=== PATIENT | female | born 1995 | race American Indian/Alaskan Native ===

== ENCOUNTER 2017-07-01 06:57 | Outpatient (CLI) | payer MEDICARE ==
[2017-07-01 07:16] VITALS: BP 110/58
[2017-07-01] MEDS ORDERED: LACTATED RINGERS 500 ML IV ONE (08:00)
[2017-07-01 08:01] LABS: Bilirubin,Urine NEG (Negative); Blood,Urine NEG (Negative); Color,Urine Straw (Yellow); Protein,Urine <15 mg/dL mg/dL (Negative); Urobilinogen,Urine < 2.0 mg/dL (<2.0); WBC,Urine < 1.0 /HPF (0.0-6.0)
[2017-07-01 08:47] LABS: RBC,Urine < 1.0 /HPF (0.0-6.0)
== END 2017-07-01 09:19 | disposition home or self-care (01) ==
LOC: TRG 06:57
PROVIDERS: ATTEND Obstetrics & Gynecology
DX: O26.892 Other specified pregnancy related conditions, second trimester (principal); R25.2 Cramp and spasm; Z3A.21 21 weeks gestation of pregnancy
CPT/HCPCS: 59025; 81001

== ENCOUNTER 2017-10-01 20:36 | Outpatient (CLI) | payer MEDICARE ==
[2017-10-01] MEDS ORDERED: LACTATED RINGERS 500 ML IV ONE (21:08)
[2017-10-01 21:38] LABS: Bilirubin,Urine NEG (Negative); Blood,Urine NEG (Negative); Color,Urine Yellow (Yellow); Protein,Urine <15 mg/dL mg/dL (Negative); Urobilinogen,Urine < 2.0 mg/dL (<2.0)
[2017-10-01 21:39] LABS: Bacteria,Urine 2+ /HPF (Negative); Mucus,Urine FEW /HPF
[2017-10-01 22:06] VITALS: BP 119/66
--- NOTE | 2017-10-02 01:43 | Ultrasound Report ---
FINAL REPORT EXAM: US OB BPP WO NON-STRESS HISTORY: decrease movement TECHNIQUE: A limited OB sonogram was obtained for evaluation of the biophysical profile. FINDINGS: For breathing movements, a score of 2 out of 2 was obtained. For movements, a score of 2 out of 2 was obtained. For posture in tone, a score of 2 out of 2 was obtained. For qualitative amniotic fluid volume, a score of 2 out of 2 was obtained. The total biophysical profile score was 8 out of 8. The heart rate is 133 BPM. IMPRESSION: Biophysical profile score of 8 out of 8. The heart rate is 133 BPM.
== END 2017-10-01 22:40 | disposition home or self-care (01) ==
LOC: TRG 20:36
PROVIDERS: ATTEND Obstetrics & Gynecology
DX: O26.893 Other specified pregnancy related conditions, third trimester (principal); R10.2 Pelvic and perineal pain; Z3A.33 33 weeks gestation of pregnancy
CPT/HCPCS: 59025; 76819; 81001; 96360; J7120

== ENCOUNTER 2017-10-31 22:11 | Outpatient (CLI) | payer MEDICARE ==
[2017-10-31 23:00] LABS: Bacteria,Urine 1+ /HPF (Negative); Bilirubin,Urine NEG (Negative); Blood,Urine NEG (Negative); Color,Urine Yellow (Yellow); Mucus,Urine FEW /HPF
[2017-10-31 23:26] VITALS: BP 123/67
== END 2017-10-31 23:47 | disposition home or self-care (01) ==
LOC: TRG 22:11
PROVIDERS: ATTEND Obstetrics & Gynecology
DX: O47.1 False labor at or after 37 completed weeks of gestation (principal); Z3A.37 37 weeks gestation of pregnancy
CPT/HCPCS: 59025; 81001

== ENCOUNTER 2017-11-06 17:43 | Outpatient (CLI) | payer MEDICARE ==
[2017-11-06 18:47] VITALS: BP 114/68
== END 2017-11-06 19:18 | disposition home or self-care (01) ==
LOC: TRG 17:43
PROVIDERS: ATTEND Obstetrics & Gynecology
DX: O47.1 False labor at or after 37 completed weeks of gestation (principal); Z3A.38 38 weeks gestation of pregnancy
CPT/HCPCS: 59025

== ENCOUNTER 2019-01-20 10:02 | Inpatient (IN) | payer OTHER ==
[2019-01-20] MEDS ORDERED: OXYTOCIN DRIP 30 UNITS/500 ML BAG IV SCH ×2 (10:30→11:00)
--- NOTE | 2019-01-20 10:34 | History and Physical Report ---
History of Present Illness Date of examination: 01/20/19 Date of admission: 01/20/19 10:02 Chief complaint: scheduled induction of labor History of present illness: Pt is a 23 year old -[place] ERIN 01/23/19 at 39w4d who presents for scheduled induction of labor secondary to morbid obesity. She reports irregular contractions. She denies vaginal bleeding or leakage of fluid. She has had care with comangement by [facility] secondary to morbid obesity, chest pain and palpitations s/p Cardiology consult, H/o depression, lapse in care from 19-28 wks, limited anatomy scan with MFM follow up, echongenic foci- [facility] following. She is GBS negative. Past History Past Medical History: other (Obesity ) Past Surgical History: D&C Family/Genetic History: diabetes, hypertension Social history: no significant social history - Obstetrical History Expected Date of Delivery: 01/23/19 Actual Gestation: 39 Week(s) 4 Day(s) : 4 Para: 2 Hx # Term Pregnancies: 2 Number of Pregnancies: 0 Spontaneous Abortions: 0 Induced : 1 Number of Living Children: 2 Medications and Allergies Allergies Allergy/AdvReac Type Severity Reaction Status Date / Time No Known Allergies Allergy Verified 11/04/15 01:34 Home Medications Medication Instructions Recorded Confirmed Last Taken Type Vit-Fe Fumar-FA [ 1 tab PO QDAY #30 tablet 03/10/16 11/15/17 11/14/17 Rx Vitamin] HYDROcodone/APAP 5-325 [Charlo 1 each PO Q6HR PRN #30 tablet 11/16/17 Unknown Rx 5/325] Ibuprofen [Motrin] 800 mg PO Q8HR PRN #60 tablet 11/16/17 Unknown Rx Review of Systems All systems: negative - Physical Exam Breasts: Positive: deferred Cardiovascular: Regular rate Lungs: Positive: Clear to auscultation Abdomen: Positive: soft (obese, gravid ) Genitourinary (Female): Positive: normal external genitalia Uterus: Positive: enlarged (gravid ) Extremities: Positive: normal - Obstetrical FHR: auscultation normal Cervical Dilatation: 3 Cervical Effacement Percentage: 70 station: -3 Uterine Contraction Pattern: Regular Uterine Tone Measurement Phase: Resting Uterine Contraction Intensity: Moderate Results Result Diagrams: 01/20/19 10:55 All other labs normal. Assessment and Plan A: IUP at 39w4d Morbid Obesity GBS Negative P: Admit to labor and delivery Routine intrapartum care
[2019-01-20] MEDS ORDERED: TERBUTALINE 1 MG/1 ML INJ SUB-Q PRN (11:00)
[2019-01-20] MEDS ORDERED: LIDOCAINE (2%) 20 MG/1 ML VIAL 20 ML MDV INFILTRATI NR (11:00)
[2019-01-20] MEDS ORDERED: MINERAL OIL 30 ML ORAL LIQD PO PRN (11:00)
[2019-01-20] MEDS ORDERED: OXYTOCIN 20 UNIT/1000ML DRIP 20 UNITS/1,000 ML BAG IV SCH (11:00)
[2019-01-20] MEDS ORDERED: NALOXONE 0.4 MG/1 ML INJ IV PRN (11:00)
[2019-01-20] MEDS ORDERED: fentaNYL 100 MCG/2 ML INJ IV PRN (11:00)
[2019-01-20] MEDS ORDERED: TERBUTALINE 1 MG/1 ML INJ IVP PRN (11:00)
[2019-01-20] MEDS ORDERED: ePHEDrine SULFATE 50 MG/1 ML INJ IV PRN (11:00)
[2019-01-20] MEDS ORDERED: ONDANSETRON 4 MG/2 ML INJ IV PRN (11:00)
[2019-01-20 11:06] LABS: Hematocrit 32.3 % (30.3-42.9); Hemoglobin 10.9 gm/dl (10.1-14.3); Mean Corpuscular HGB Conc 34 % (30-34); Mean Corpuscular Volume 86 fl (79-97); Platelet Count 283 K/mm3 (140-440); Red Blood Count 3.74 M/mm3 (3.65-5.03); Red Cell Distribution Width 13.7 % (13.2-15.2)
[2019-01-20] MEDS: LACTATED RINGERS 1,000 ML IV SCH ×2 (11:30→19:09)
[2019-01-20] MEDS: BUTORPHANOL 2 MG/1 ML INJ IV PRN (23:59)
[2019-01-21] MEDS: LACTATED RINGERS 1,000 ML IV SCH (03:08)
[2019-01-21] MEDS: BUTORPHANOL 2 MG/1 ML INJ IV PRN (03:08)
[2019-01-21] MEDS ORDERED: MAGNESIUM HYDROXIDE (MOM) ORAL LIQD UDC PO PRN (06:29)
[2019-01-21] MEDS ORDERED: oxyCODONE /ACETAMINOPHEN 5-325MG TAB PO PRN (06:29)
[2019-01-21] MEDS ORDERED: PROMETHAZINE 25 MG TAB PO PRN (06:29)
[2019-01-21] MEDS ORDERED: WITCH HAZEL/ GLYCERIN PAD TP PRN (06:29)
[2019-01-21] MEDS ORDERED: KETOROLAC 30 MG/1 ML INJ IV PRN (06:29)
[2019-01-21] MEDS ORDERED: diphenhydrAMINE 25 MG CAP PO PRN (06:29)
[2019-01-21] MEDS ORDERED: PROMETHAZINE 25 MG RECT SUPP PR PRN (06:29)
[2019-01-21] MEDS ORDERED: HYDROcodone/ACETAMINOPHEN 5-325 MG TAB PO PRN (06:29)
[2019-01-21] MEDS ORDERED: LANOLIN/ZINC/DIMETHICONE (LANSINOH) 7 GM TP PRN (06:29)
[2019-01-21] MEDS ORDERED: ONDANSETRON 4 MG/2 ML INJ IV PRN (06:29)
[2019-01-21] MEDS ORDERED: ACETAMINOPHEN 325 MG TAB PO PRN (06:29)
--- NOTE | 2019-01-21 06:34 | Procedure Note ---
OB Delivery Note - Delivery Date of Delivery: 01/21/19 Surgeon: MARCIA ROBERTSON Estimated blood loss: 300cc - Vaginal Delivery presentation: vertex Delivery position: OA Intrapartum events: none Delivery induction: oxytocin Delivery augmentation: rupture of membranes Delivery monitor: external FHT, external uterine Route of delivery: Delivery placenta: spontaneous Delivery cord: nuchal cord Episiotomy: none Delivery laceration: none Anesthesia: none Delivery comments: of a vigorous term 6 lbs 11 oz male on 01/21/19 @ 0615. Female Baby placed [id number] on maternal abdomen and dried. Cord blood collected. Spontaneous delivery of placenta at 618a. Small lochia present. Fundal massage and IV PItocin bolus initiated. Fundus F/ML/U-2. Placenta intact; was discarded. Perineum intact. Patient tolerated the procedure well. Mom and baby in stable condition. - Infant A at 1 minute: 8 at 5 minutes: 9 Gender: Female (2917g=6 pounds 7 oz)
[2019-01-21] MEDS ORDERED: OXYTOCIN 20 UNIT/1000ML DRIP 20 UNITS/1,000 ML BAG IV SCH (07:00)
[2019-01-21] MEDS: PRENATAL VIT27-FE FUMARATE-FOLIC ACID VIT TAB PO SCH (11:22)
[2019-01-21] MEDS: IBUPROFEN 600 MG TAB PO SCH ×2 (11:23→21:06)
[2019-01-21] MEDS: DOCUSATE SODIUM 100 MG CAP PO SCH ×2 (11:24→22:30)
[2019-01-21 17:26] LABS: Hematocrit 29.6 % (30.3-42.9)
[2019-01-21] MEDS: SENNOSIDES/DOCUSATE SODIUM 8.6/50 MG TAB PO SCH (22:30)
[2019-01-22] MEDS: IBUPROFEN 600 MG TAB PO SCH (05:14)
[2019-01-22] MEDS ORDERED: TETANUS,DIPH,PERTUSS(ACELL) VACCINE 0.5 ML SYRINGE IM ONE (06:00)
[2019-01-22] MEDS ORDERED: MEASLES, MUMPS & RUBELLA 12,500 UNIT/0.5 ML VACCINE SUB-Q ONE (06:29)
--- NOTE | 2019-01-22 07:48 | Progress Note ---
Assessment and Plan PPD1 s/p Vital signs stable Mild anemia History depression Plan for discharge to home tomorrow Subjective - Subjective Date of service: 01/22/19 Principal diagnosis: Interval history: Pt is PPD1 s/p Patient reports: appetite normal, voiding normally, pain well controlled, ambulating normally, other (Mood is stable) : doing well, nursing well, bottle feeding (both) Objective - Vital Signs Latest vital signs: Vital Signs Temp Pulse Resp BP BP Pulse Ox 01/22/19 00:52 97.7 F 63 20 110/63 100 01/21/19 15:35 98.2 F 63 20 108/67 01/21/19 13:00 98 F 71 20 122/68 01/21/19 09:25 98.3 F 73 16 123/69 01/21/19 09:00 72 116/56 01/21/19 08:45 74 111/54 01/21/19 08:31 69 115/59 01/21/19 08:16 60 121/74 01/21/19 08:00 64 109/60 01/21/19 07:55 97.7 F 01/21/19 07:53 75 117/69 01/21/19 07:52 70 113/60 Intake and Output 01/21/19 01/21/19 01/22/19 15:59 23:59 07:59 Intake Total 440 120 Balance 440 120 Intake: Oral 440 120 Other: Total, Intake Amount 320 120 # Voids Void 1 1 - Exam Lungs: Present: Normal air movement Abdomen: Present: normal appearance, soft Uterus: Present: normal, firm, fundal height below umbilicus Extremities: Present: normal - Labs Labs: Abnormal lab results 01/21/19 Range/Units 17:11 Hgb 10.0 L (10.1-14.3) gm/dl Hct 29.6 L (30.3-42.9) %
--- NOTE | 2019-01-22 07:51 | Discharge Summary ---
Providers - Providers Date of Admission: 01/20/19 10:02 Date of discharge: 01/23/19 Attending physician: MARCIA ROBERTSON MD Primary care physician: MARCIA ROBERTSON MD Hospitalization Reason for admission: induction of labor (for morbid obesity) Delivery: Episiotomy: none Laceration: none Other procedures: none complications: none Discharge diagnosis: IUP at term delivered baby: female Hospital course: Pt progressed to . Hospital course uncomplicated, met discharge criteria on PPD!. History of depression, will need to follow up in clinic in 2 weeks for mood check. Condition at discharge: Good Disposition: DC-01 TO HOME OR SELFCARE Plan - Discharge Medications Prescriptions: Ferrous Sulfate [Feosol 325 MG tab] 325 mg PO BID #30 tablet Ibuprofen [Motrin] 600 mg PO Q8H PRN #30 tablet PRN Reason: Pain - Provider Discharge Summary Activity: routine, no sex for 6 weeks, no heavy lifting 4 weeks, no strenuous exercise Diet: routine Instructions: routine Additional instructions: [] Smoking cessation referral if applicable(refer to patient education folder for contact #) [] Refer to [facility]'s [facility] Booklet Call your doctor immediately for: * Fever > 100.5 * Heavy vaginal bleeding ( >1 pad per hour) * Severe persistent headache * Shortness of breath * Reddened, hot, painful area to leg or breast * Drainage or odor from incision. * Keep incision clean and dry at all times and follow doctor's instructions regarding bathing/showering - Follow up plan Follow up: BENNETT MUSE MD [Staff Physician] - 14 Days (Please call [facility] to schedule appointment.)
[2019-01-22] MEDS: SENNOSIDES/DOCUSATE SODIUM 8.6/50 MG TAB PO SCH (11:02)
[2019-01-22] MEDS: PRENATAL VIT27-FE FUMARATE-FOLIC ACID VIT TAB PO SCH (11:02)
[2019-01-22] MEDS: DOCUSATE SODIUM 100 MG CAP PO SCH ×2 (11:02→21:59)
[2019-01-23] MEDS: SENNOSIDES/DOCUSATE SODIUM 8.6/50 MG TAB PO SCH ×2 (00:01→10:58)
[2019-01-23] MEDS: IBUPROFEN 600 MG TAB PO SCH ×2 (05:24)
--- NOTE | 2019-01-23 08:34 | Progress Note ---
Assessment and Plan PPD2 s/p Vital signs stable Mild anemia History depression Discharge to home today Subjective - Subjective Date of service: 01/23/19 Principal diagnosis: Interval history: Pt is PPD2 s/p Patient reports: appetite normal, voiding normally, pain well controlled, ambulating normally [place]: doing well, bottle feeding (difficulty latching to breast. Has been trying cross-cradle hold) Objective - Vital Signs Latest vital signs: Vital Signs Temp Pulse Resp BP BP Pulse Ox 01/23/19 05:24 20 01/23/19 00:35 98.0 F 66 20 108/56 99 01/23/19 00:00 20 01/22/19 16:10 98.3 F 64 20 130/74 01/22/19 08:35 97.6 F 66 20 119/66 Intake and Output 01/22/19 01/23/19 01/23/19 23:59 07:59 15:59 Intake Total 120 480 Balance 120 480 Intake: Oral 120 Intake, Free Water 480 Other: Total, Intake Amount 120 # Voids Void 1 3 - Exam Lungs: Present: Normal air movement Abdomen: Present: normal appearance, soft Uterus: Present: normal, firm, fundal height at umbilicus Extremities: Present: normal
[2019-01-23 08:50] VITALS: BP 116/65
[2019-01-23] MEDS: PRENATAL VIT27-FE FUMARATE-FOLIC ACID VIT TAB PO SCH (10:57)
[2019-01-23] MEDS: DOCUSATE SODIUM 100 MG CAP PO SCH (10:58)
== END 2019-01-23 11:33 | disposition home or self-care (01) | DRG 775 ==
LOC: LD 10:02 → OB 01-21 09:32
PROVIDERS: ADMIT Obstetrics & Gynecology; ATTEND Obstetrics & Gynecology
PROC: 10E0XZZ Delivery of Products of Conception, External Approach (ICD-10-PCS; principal; 2019-01-21)
PROC: 3E033VJ Introduction of Other Hormone into Peripheral Vein, Percutaneous Approach (ICD-10-PCS; 2019-01-21)
PROC: 3E0234Z Introduction of Serum, Toxoid and Vaccine into Muscle, Percutaneous Approach (ICD-10-PCS; 2019-01-22)
DX: O99.214 Obesity complicating childbirth (principal); O69.81X0 Labor and delivery complicated by cord around neck, without compression, not applicable or unspecified; O99.02 Anemia complicating childbirth; O99.344 Other mental disorders complicating childbirth; D64.9 Anemia, unspecified; F32.9 Major depressive disorder, single episode, unspecified; E66.01 Morbid (severe) obesity due to excess calories; Z82.49 Family history of ischemic heart disease and other diseases of the circulatory system; Z3A.39 39 weeks gestation of pregnancy; Z37.0 Single live birth; Z83.3 Family history of diabetes mellitus; Z79.899 Other long term (current) drug therapy; Z23 Encounter for immunization
CPT/HCPCS: 36415; 85014; 85018; 85027; 86592; 86850; 86900; 86901; G0378; J0595; J2590; J7120

== ENCOUNTER 2020-07-26 06:29 | Inpatient (IN) | payer MEDICAID ==
[2020-07-26] MEDS ORDERED: LIDOCAINE (2%) 20 MG/1 ML VIAL 20 ML MDV INFILTRATI NR (08:10)
[2020-07-26] MEDS ORDERED: ePHEDrine SULFATE 50 MG/1 ML INJ IV PRN (08:10)
[2020-07-26] MEDS ORDERED: TERBUTALINE 1 MG/1 ML INJ SUB-Q PRN (08:10)
[2020-07-26] MEDS ORDERED: AMPICILLIN/NS 2 GM/100 ML 2 GM/100 ML BAG IV ONE (08:11)
[2020-07-26] MEDS ORDERED: ONDANSETRON 4 MG/2 ML INJ IV PRN ×2 (09:00→17:30)
[2020-07-26] MEDS ORDERED: LACTATED RINGERS 1,000 ML IV SCH (09:00)
[2020-07-26] MEDS ORDERED: OXYTOCIN DRIP 30 UNITS/500 ML BAG IV SCH ×2 (09:00→09:30)
[2020-07-26] MEDS ORDERED: fentaNYL 100 MCG/2 ML INJ IV PRN (09:00)
[2020-07-26 09:03] LABS: Hematocrit 33.3 % (30.3-42.9); Hemoglobin 10.9 gm/dl (10.1-14.3); Mean Corpuscular HGB Conc 33 % (30-34); Mean Corpuscular Volume 84 fl (79-97); Platelet Count 295 K/mm3 (140-440); Red Blood Count 3.97 M/mm3 (3.65-5.03); Red Cell Distribution Width 15.1 % (13.2-15.2)
[2020-07-26] MEDS ORDERED: AMPICILLIN/NS 1 GM/50 ML 1 GM/50 ML BAG IV SCH (13:00)
[2020-07-26] MEDS: BUTORPHANOL 2 MG/1 ML INJ IV PRN ×2 (14:00→16:06)
--- NOTE | 2020-07-26 17:14 | History and Physical Report ---
History of Present Illness Date of examination: 07/26/20 Date of admission: 07/26/20 11:31 Chief complaint: IOL History of present illness: 25y/o @ 39+0 weeks admitted for IOL for obesity. Patient has had lapse in care. Past History Past Medical History: other (obesity) Past Surgical History: no surgical history Social history: single - Obstetrical History Expected Date of Delivery: 08/02/20 Actual Gestation: 39 Week(s) 1 Day(s) : 5 Para: 3 Hx # Term Pregnancies: 3 Number of Pregnancies: 0 Spontaneous Abortions: 0 Induced : 1 Number of Living Children: 3 Medications and Allergies Allergies Allergy/AdvReac Type Severity Reaction Status Date / Time No Known Allergies Allergy Verified 11/04/15 01:34 Home Medications Medication Instructions Recorded Confirmed Last Taken Type No Known Home Medications [No 07/26/20 07/26/20 Unknown History Reported Home Medications] Active Meds: Active Medications Butorphanol Tartrate (Butorphanol 2 Mg/1 Ml Inj) 2 mg IV Q2H PRN PRN Reason: Pain , Severe (7-10) Last Admin: 07/26/20 16:06 Dose: 2 mg Documented by: Ephedrine Sulfate (Ephedrine Sulfate 50 Mg/1 Ml Inj) 10 mg IV Q2M PRN PRN Reason: Hypotension Fentanyl (Fentanyl 100 Mcg/2 Ml Inj) 100 mcg IV Q2H PRN PRN Reason: Pain,Severe (7-10) LABOR PAIN Oxytocin/Sodium Chloride (Pitocin/Ns 30 Unit/500ml) 30 units in 500 mls @ 4 mls/hr IV TITR POP; Protocol Last Titration: 07/26/20 12:41 Dose: 20 ml/hr, 20 mls/hr Documented by: Lactated Ringer's (Lactated Ringers) 1,000 mls @ 125 mls/hr IV DIRECT POP Last Admin: 07/26/20 09:22 Dose: 125 mls/hr Documented by: Oxytocin/Sodium Chloride (Pitocin/Ns 30 Unit/500ml) 30 units in 500 mls @ 40 mls/hr IV TITR POP; Protocol Ampicillin Sodium (Ampicillin/Ns 1 Gm/50 Ml) 1 gm in 50 mls @ 100 mls/hr IV Q4H POP; Protocol Last Admin: 07/26/20 13:30 Dose: 100 mls/hr Documented by: Mineral Oil (Mineral Oil 30 Ml Oral Liqd) 30 ml PO QHS PRN PRN Reason: Constipation Ondansetron HCl (Ondansetron 4 Mg/2 Ml Inj) 4 mg IV Q8H PRN PRN Reason: Nausea And Vomiting Terbutaline Sulfate (Terbutaline 1 Mg/1 Ml Inj) 0.25 mg SUB-Q ONCE PRN PRN Reason: Hyperstimulation/Hypertonicity Stop: 07/27/20 08:09 Review of Systems All systems: negative - Vital Signs Vital signs: Vital Signs Pulse BP 78 109/59 07/26/20 07:03 07/26/20 07:03 Temp Pulse Resp BP Pulse Ox 98.5 F 68 20 140/72 100 07/26/20 12:22 07/26/20 17:08 07/26/20 12:22 07/26/20 17:08 07/26/20 17:04 - Physical Exam Breasts: Positive: deferred Cardiovascular: Regular rate Lungs: Positive: Clear to auscultation Abdomen: Positive: normal appearance Results Result Diagrams: 07/27/20 05:40 All other labs normal. Assessment and Plan - Patient Problems (1) Morbid obesity Current Visit: No Status: Acute Plan to address problem: admit for IOL
--- NOTE | 2020-07-26 17:15 | Procedure Note ---
OB Delivery Note - Delivery Date of Delivery: 07/26/20 Surgeon: CARRIE KUHN Estimated blood loss: 100cc - Vaginal Delivery presentation: vertex Delivery position: OA Delivery augmentation: pitocin Delivery monitor: external FHT, external uterine, internal uterine Route of delivery: Delivery placenta: spontaneous Delivery cord: 3 umbilical vessels Episiotomy: none Delivery laceration: 1st degree Anesthesia: none - A at 1 minute: 9 at 5 minutes: 9 Infant Gender: Female (weight 7lbs 6oz)
[2020-07-26] MEDS ORDERED: diphenhydrAMINE 25 MG CAP PO PRN (17:30)
[2020-07-26] MEDS ORDERED: WITCH HAZEL/ GLYCERIN PAD TP PRN (17:30)
[2020-07-26] MEDS ORDERED: PROMETHAZINE 25 MG RECT SUPP PR PRN (17:30)
[2020-07-26] MEDS ORDERED: LANOLIN/ZINC/DIMETHICONE (LANSINOH) 7 GM TP PRN (17:30)
[2020-07-26] MEDS ORDERED: PROMETHAZINE 25 MG TAB PO PRN (17:30)
[2020-07-26] MEDS ORDERED: ACETAMINOPHEN 325 MG TAB PO PRN (17:30)
[2020-07-26] MEDS: IBUPROFEN 600 MG TAB PO SCH (18:42)
[2020-07-26] MEDS ORDERED: MAGNESIUM HYDROXIDE (MOM) ORAL LIQD UDC PO PRN (22:00)
[2020-07-26] MEDS ORDERED: MINERAL OIL 30 ML ORAL LIQD PO PRN (22:00)
[2020-07-27] MEDS: IBUPROFEN 600 MG TAB PO SCH ×4 (04:46→23:08)
[2020-07-27 05:59] LABS: Hematocrit 27.9 % (30.3-42.9); Hemoglobin 9.6 gm/dl (10.1-14.3)
[2020-07-27] MEDS: HYDROcodone/ACETAMINOPHEN 5-325 MG TAB PO PRN ×2 (06:11→17:36)
--- NOTE | 2020-07-27 08:09 | Progress Note ---
Assessment and Plan A: PPD1 s/p at term. P: Continue with routine care with anticipated discharge this evening. Subjective - Subjective Date of service: 07/27/20 Principal diagnosis: PPD1 s/p at term Interval history: PPD1 s/p at term. Pt currently resting. Reports feeling tired but feels well overall. Reports adequate pain control and decreasing lochia. Patient reports: appetite normal, voiding normally, pain well controlled, ambulating normally [place]: doing well Objective - Vital Signs Latest vital signs: Vital Signs Temp Pulse Resp BP BP Pulse Ox 07/27/20 06:11 20 07/27/20 05:46 18 07/27/20 04:46 18 07/27/20 00:25 97.9 F 69 20 107/60 78 L 07/26/20 20:51 98.4 F 67 20 121/70 99 07/26/20 18:30 97.8 F 76 15 121/71 99 07/26/20 17:59 66 100 07/26/20 17:54 70 93 07/26/20 17:53 61 123/61 07/26/20 17:49 77 64 L 07/26/20 17:47 68 90 07/26/20 17:44 71 98 07/26/20 17:41 77 94 07/26/20 17:39 75 100 07/26/20 17:38 74 147/71 07/26/20 17:34 82 98 07/26/20 17:29 69 100 07/26/20 17:26 75 131/58 07/26/20 17:24 70 100 07/26/20 17:19 70 100 07/26/20 17:14 70 100 07/26/20 17:09 67 100 07/26/20 17:08 68 140/72 07/26/20 17:06 70 140/65 07/26/20 17:04 75 100 07/26/20 17:00 97.9 F 16 99 07/26/20 16:59 80 93 07/26/20 16:54 69 100 07/26/20 16:53 72 158/83 94 07/26/20 16:49 79 100 07/26/20 16:48 83 93 07/26/20 16:44 69 100 07/26/20 16:43 73 155/72 07/26/20 16:39 70 99 04/05/21 16:37 65 159/96 05 16:34 88 98 05 16:30 71 93 07/26/20 16:29 74 94 07/26/20 16:24 74 100 07/26/20 16:19 92 H 100 07/26/20 16:14 83 98 05 16:09 83 100 07/26/20 16:04 71 100 07/26/20 16:00 98.1 F 18 98 05 15:59 86 100 05 15:54 72 100 07/26/20 15:49 89 100 05 15:48 85 90 05 15:44 67 100 07/26/20 15:39 68 100 07/26/20 15:38 88 94 07/26/20 15:34 78 99 07/26/20 15:29 88 100 07/26/20 15:24 67 100 07/26/20 15:20 68 142/74 07/26/20 15:19 75 97 07/26/20 15:14 68 100 07/26/20 15:09 71 100 07/26/20 15:05 86 85 05 15:04 69 100 05 15:00 98.6 F 16 99 07/26/20 14:59 72 92 07/26/20 14:54 73 83 L 07/26/20 14:49 85 99 07/26/20 14:45 81 90 07/26/20 14:44 69 100 05 14:39 70 100 07/26/20 14:38 83 88 05 14:34 63 100 05 14:29 67 100 07/26/20 14:25 80 93 05 14:24 67 100 05 14:19 63 133/73 100 05 14:14 68 100 05 14:09 70 100 05 14:04 76 100 07/26/20 14:00 98.1 F 100 H 16 97 05 13:59 91 H 99 05 13:54 67 100 05 13:49 69 100 05 13:44 72 95 07/26/20 13:43 73 77 L 07/26/20 13:39 73 100 07/26/20 13:34 68 100 07/26/20 13:29 64 100 07/26/20 13:26 64 0 L 07/26/20 13:24 73 100 07/26/20 13:20 67 129/77 07/26/20 13:19 60 100 07/26/20 13:14 60 100 07/26/20 13:09 77 100 07/26/20 13:04 66 100 07/26/20 13:00 98.5 F 18 98 07/26/20 12:59 70 100 07/26/20 12:54 74 96 07/26/20 12:49 73 100 07/26/20 12:44 90 100 07/26/20 12:39 71 99 07/26/20 12:34 65 100 07/26/20 12:29 74 100 07/26/20 12:24 74 99 07/26/20 12:22 98.5 F 20 07/26/20 12:19 72 99 07/26/20 11:43 75 100 07/26/20 11:40 61 132/72 07/26/20 11:38 72 100 07/26/20 11:33 69 100 07/26/20 11:28 71 100 07/26/20 11:23 76 100 07/26/20 11:21 69 88 07/26/20 11:18 68 100 07/26/20 11:13 69 100 07/26/20 11:08 70 100 07/26/20 11:03 65 100 07/26/20 11:02 98.3 F 20 100 07/26/20 10:59 85 143/96 07/26/20 10:58 77 100 07/26/20 10:53 69 100 07/26/20 10:48 69 100 07/26/20 10:43 84 100 07/26/20 10:38 84 100 07/26/20 10:33 78 100 07/26/20 10:28 71 100 07/26/20 10:23 76 99 07/26/20 10:18 68 100 07/26/20 10:13 70 100 07/26/20 10:08 70 100 07/26/20 10:03 74 100 07/26/20 09:58 79 100 07/26/20 09:53 80 100 07/26/20 09:48 81 100 07/26/20 09:44 98.3 F 18 100 07/26/20 09:43 86 99 07/26/20 09:38 76 100 07/26/20 09:33 74 99 07/26/20 09:28 82 127/75 100 07/26/20 09:06 81 100 07/26/20 09:01 92 H 97 07/26/20 08:56 81 80 L 07/26/20 08:51 71 80 L 07/26/20 08:49 79 88 07/26/20 08:46 66 100 07/26/20 08:43 78 87 07/26/20 08:41 79 100 07/26/20 08:36 75 100 07/26/20 08:34 68 93 07/26/20 08:31 79 100 07/26/20 08:26 69 99 07/26/20 08:21 75 97 07/26/20 08:16 71 100 07/26/20 08:12 74 82 L 07/26/20 08:11 74 99 Intake and Output 07/26/20 07/27/20 07/27/20 23:59 07:59 15:59 Intake Total 490 240 Output Total 400 400 Balance 90 -160 Intake: IV 10 Right Forearm 10 Oral 480 240 Output: Urine 400 400 Void 400 400 Other: Total, Intake Amount 240 240 Total, Output Amount 400 400 # Voids Void 1 1 Estimated Blood Loss 100 - Exam Uterus: Present: normal, fundal height below umbilicus - Labs Labs: Abnormal lab results 07/27/20 Range/Units 05:40 Hgb 9.6 L (10.1-14.3) gm/dl Hct 27.9 L (30.3-42.9) %
--- NOTE | 2020-07-27 08:10 | Discharge Summary ---
Providers - Providers Date of Admission: 07/26/20 11:31 Date of discharge: 07/27/20 Attending physician: MARCIO TREJO MD Primary care physician: MARCIO TREJO MD Hospitalization Reason for admission: induction of labor, IUP at term Delivery: Episiotomy: none Laceration: 1st degree Other procedures: none complications: none Discharge diagnosis: IUP at term delivered baby: female Condition at discharge: Good Disposition: DC-01 TO HOME OR SELFCARE Plan - Provider Discharge Summary Activity: no sex for 6 weeks, no heavy lifting 4 weeks, no strenuous exercise Diet: routine Instructions: routine Additional instructions: [] Smoking cessation referral if applicable(refer to patient education folder for contact #) [] Refer to [facility]'s [facility] Booklet Call your doctor immediately for: * Fever > 100.5 * Heavy vaginal bleeding ( >1 pad per hour) * Severe persistent headache * Shortness of breath * Reddened, hot, painful area to leg or breast * Drainage or odor from incision. * Keep incision clean and dry at all times and follow doctor's instructions regarding bathing/showering - Follow up plan Follow up: [facility] [Advanced Practice Nurse] - 08/23/20
[2020-07-27] MEDS ORDERED: TETANUS,DIPH,PERTUSS(ACELL) VACCINE 0.5 ML SYRINGE IM ONE (19:41)
[2020-07-28] MEDS: HYDROcodone/ACETAMINOPHEN 5-325 MG TAB PO PRN (00:51)
[2020-07-28] MEDS: IBUPROFEN 600 MG TAB PO SCH ×2 (05:29→12:02)
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
[2020-07-28 15:36] VITALS: BP 124/69
== END 2020-07-28 16:55 | disposition home or self-care (01) | DRG 775 ==
LOC: TRG 06:29 → APU 06:38 → TRG 07:25 → LD 07:26 → UNDOADMIN 07:26 → LD 11:31 → OB 18:35
PROVIDERS: ADMIT Obstetrics & Gynecology; ATTEND Obstetrics & Gynecology
PROC: 10E0XZZ Delivery of Products of Conception, External Approach (ICD-10-PCS; principal; 2020-07-26)
PROC: 3E0234Z Introduction of Serum, Toxoid and Vaccine into Muscle, Percutaneous Approach (ICD-10-PCS; 2020-07-27)
DX: O99.214 Obesity complicating childbirth (principal); Z3A.39 39 weeks gestation of pregnancy; Z37.0 Single live birth; E66.01 Morbid (severe) obesity due to excess calories; O70.0 First degree perineal laceration during delivery; O99.345 Other mental disorders complicating the puerperium; F53.0 Postpartum depression; Z20.822 Contact with and (suspected) exposure to COVID-19; Z23 Encounter for immunization
CPT/HCPCS: 36415; 85014; 85018; 85027; 86592; 86850; 86900; 86901; 90471; 90715; G0378; J0290; J0595; J2590; J7120; U0003